=== PATIENT | female | born 1990 | race Caucasian/White ===

== ENCOUNTER 2019-09-26 01:34 | Emergency (ER) | payer MEDICAID ==
[~2019-09-26] VITALS: Ht 160 cm; Wt 68.0 kg
[2019-09-26] MEDS ORDERED: ACETAMINOPHEN 500MG TABLET PO ONE (02:30)
[2019-09-26 02:48] LABS: BASOPHILS % 1.1 % (0.0-2.0); EOSINOPHILS % 1.9 % (0.0-5.0); HEMATOCRIT. 34.7 % (36.0-48.0); HEMOGLOBIN. 12.2 g/dL (12.0-16.0); LYMPHOCYTES % 34.3 % (20.0-50.0); MEAN CORPUSCULAR HEMOGLOBIN 31.2 pg (28.0-32.0); MEAN PLATELET VOLUME 7.7 fl (7.4-10.4); MONOCYTES % 6.3 % (2.0-8.0); NEUTROPHILS % 56.4 % (40.0-76.0); PLATELET 304 x1000/uL (130-400); RED CELL DISTRIBUTION WIDTH 12.5 % (11.6-14.6)
[2019-09-26 02:50] LABS: CHLORIDE 107 mEq/L (98-107)
[2019-09-26 03:02] LABS: CLARITY URINE CLEAR (CLEAR); COLOR URINE YELLOW (YELLOW); KETONES URINE TRACE (NEGATIVE); LEUKOCYTE ESTERASE URINE NEGATIVE (NEGATIVE); NITRITE URINE NEGATIVE (NEGATIVE); OCCULT BLOOD URINE NEGATIVE (NEGATIVE); PH URINE 6.5 (4.5-8.0); PROTEIN URINE NEGATIVE (NEGATIVE); SPECIFIC GRAVITY URINE 1.005 (1.005-1.030); UROBILINOGEN URINE 0.2 E.U./dL (0.2-1.0)
[2019-09-26 03:14] LABS: B-HCG QUANTITATIVE 14171 mIU/mL (<3)
[2019-09-26 04:03] VITALS: BP 112/70
== END 2019-09-26 04:31 | disposition home or self-care (01) ==
LOC: ER 02:38
DX: O20.0 Threatened abortion (principal); Z3A.01 Less than 8 weeks gestation of pregnancy
CPT/HCPCS: 36415; 76801; 76817; 80053; 81003; 81025; 84702; 85025; 86850; 86900; 86901; 99284; Z7610